=== PATIENT | female | born 1950 | race Caucasian/White ===

== ENCOUNTER 2025-01-05 09:24 | Emergency (ER) | payer MEDICARE, SELFPAY ==
[2025-01-05] VITALS (8 sets, daily range): BP systolic 152–173; BP diastolic 78–90; PULSE 72–88; RESP 15–24; TEMP 36.5–36.6; O2SAT 95–100
--- NOTE | ~2025-01-05 | XR_ITS ---
HISTORY: injury COMPARISON: None TECHNIQUE: 3 views of the right elbow were performed FINDINGS: Acute fracture of the proximal radius is identified, extending into the articular surface. Partial elbow dislocation is present. Large joint effusion is noted. IMPRESSION: Proximal radius fracture, extending into the articular surface with partial opacificatio n dislocation. Reviewed, dictated and finalized at location A. IMPRESSION: Proximal radius fracture, extending into the articular surface wit h partial opacification dislocation.
--- NOTE | ~2025-01-05 | XR_ITS ---
HISTORY: GLF COMPARISON: None TECHNIQUE: 3 views of the left ankle were performed FINDINGS: Fixation hardware within the medial and lateral malleolus. No acute displaced fracture or dislocation. Medial soft tissue swelling. The ankle mortise is preserved. Bone mineralization is age-appropriate. IMPRESSION: Medial soft tissue swelling, without acute displaced fracture, as detailed above. Reviewed, dictated and finalized at location A.
--- NOTE | ~2025-01-05 | XR_ITS ---
HISTORY: GLF COMPARISON: None TECHNIQUE: 3 views of the left foot were performed FINDINGS: No acute displaced fracture is appreciated. Moderate degenerative disease is noted. The base of the fifth metatarsal is intact. Small calcaneal spur is noted. No significant soft tissue swelling is present. IMPRESSION: Degenerative disease without acute displaced fracture, as detailed above. Reviewed, dictated and finalized at location A.
--- NOTE | ~2025-01-05 | XR_ITS ---
HISTORY: post reduction COMPARISON: Original imaging performed approximately 1 hour earlier TECHNIQUE: 2 views of the right elbow were performed FINDINGS: Alignment is restored within the right elbow post reduction. Large joint effusion persists. Acute fracture of the proximal radius is suspected (although not as clearly visualized on the current study), with possible extension into the articular surface. Bone mineralization is age-appropriate. IMPRESSION: Near anatomic alignment in the right elbow, as detailed above. Proximal radius fracture is suspected although not as clearly visualized on the current study with po ssible extension into the articular surface. Reviewed, dictated and finalized at location A. IMPRESSION: Near anatomic alignment in the right elbow, as detailed above. Proximal radius fracture is suspected although not as clearly visualized on the current study with possible extension into the articular surface.
[2025-01-05] MEDS: MORPHINE SULFATE (*CRX) 4 MG/ML INJ 2 MG IV PUSH (10:46)
--- NOTE | 2025-01-05 10:49 | ED_ITS ---
HPI - General Adult General Chief complaint: Extremity Injury, Upper Stated complaint: R ELBOW INJURY S/P FALL Time Seen by Provider: 01/05/25 10:20 History of Present Illness HPI narrative: Patient is a 64-year-old who presents emergency department chief complaint of right elbow pain. The patient reports she was wearing a pair of flip-flops and slipped reports she landed on right elbow reports that she is a deformity your right elbow patient believes it is dislocated and possibly fracture. The patient reports no laceration Related Data Allergies Allergy/AdvReac Type Severity Reaction Status Date / Time No Known Allergies Allergy Verified 01/05/25 09:31 Review of Systems Review of Systems: A 10 system review of systems was completed on the patient and is negative except for what is stated in the HPI. Nursing and ancillary documentation was reviewed. Exam Narrative: GENERAL: Well-appearing, well-nourished, and in no acute distress. HEAD: Normocephalic, atraumatic. EYES: PERRLA and EOMI. ENT: Nares clear, no rhinorrhea or epistaxis. Mucous membranes moist. NECK: Supple. CHEST: Clear to auscultation. No respiratory distress. HEART: Regular rate and rhythm. No murmur heard. Normal peripheral pulses. ABDOMEN: Soft, nontender, nondistended, normal active bowel sounds. EXTREMITIES: Normal range of motion in all extremities except for right upper extremity there is a deformity of the right elbow. No edema. SKIN: Warm, dry, no rash. NEURO: No focal deficits. Alert and oriented x3. PSYCH: Normal mood and affect. Course Vital Signs Vital signs: Vital Signs Temperature 36.5 C 01/05/25 09:29 Pulse Rate 72 01/05/25 09:29 Respiratory Rate 16 01/05/25 09:29 Blood Pressure 168/78 H 01/05/25 09:29 Pulse Oximetry 98 01/05/25 09:29 Oxygen Delivery Room Air 01/05/25 09:29 Temperature 36.6 C 01/05/25 11:55 Pulse Rate 88 01/05/25 12:34 Respiratory Rate 15 01/05/25 12:34 Blood Pressure 152/83 H 01/05/25 12:34 Pulse Oximetry 95 01/05/25 12:34 Oxygen Delivery Room Air 01/05/25 11:55 Oxygen Flow Rate 2 01/05/25 11:35 Procedures Orthopedic Joint Reduction Joint #1: Orthopedic Joint Reduction Date: 01/05/25 Orthopedic Joint Reduction Time: 11:44 Time Out Performed: Yes Side: right Joint Reduction Location: elbow Analgesia: procedural sedation Pre-Procedure Neuro Vascular Exam: normal Local Anesthesia: none Technique used: direct manipulation Post-reduction neuro exam: intact Post-reduction vascular: intact Post Reduction X-Ray Obtained: Yes Post Reduction X-Ray Results: reduced Splint Applied: Yes Patient Tolerated Procedure: well Procedural Sedation Procedural Sedation #1: Procedural Sedation Date: 01/05/25 Procedural Sedation Time: 11:45 ASA Class: II Mallampati Classification: class I NPO Status: last solid food (hours ago) (8) and last liquid food (hours ago) (8) Explanation to Patient/Family: Risk/Benefits/Alternatives and Pt/Family agreed with plan Pt. Educated on Procedural Sedation: Yes Re-evaluated immediately prior: Yes Preparation: youth nutritional monitor applied, pulse oximeter, capnometry used, supplemental O2 applied, suction/airway equipment at bedside and IV secured IV Propofol dose (mg): 50 Patient Tolerated Procedure: well Complications: none Total Sedation Time (min): 5 Medical Decision Making Vital Signs Vital Signs: Vital Signs Temperature 36.5 C 01/05/25 09:29 Pulse Rate 72 01/05/25 09:29 Respiratory Rate 16 01/05/25 09:29 Blood Pressure 168/78 H 01/05/25 09:29 Pulse Oximetry 98 01/05/25 09:29 Oxygen Delivery Room Air 01/05/25 09:29 Temperature 36.6 C 01/05/25 11:55 Pulse Rate 88 01/05/25 12:34 Respiratory Rate 15 01/05/25 12:34 Blood Pressure 152/83 H 01/05/25 12:34 Pulse Oximetry 95 01/05/25 12:34 Oxygen Delivery Room Air 01/05/25 11:55 Oxygen Flow Rate 2 01/05/25 11:35 Discharge Plan Discharge Clinical Impression: Dislocation of right elbow, Closed fracture of radial head Patient Disposition: Home Condition: Stable Instructions: Antibiotic Form, Elbow Dislocation (ED), Elbow Fracture (ED), How to Use a Sling (ED), Moderate Sedation (ED), Splint Care (ED) Patient Language: Filipino Prescriptions: New hydrocodone-acetaminophen 5-325 mg tablet 1 tablet PO Q6H PRN (Reason: pain) 3 Days Qty: 12 0RF Follow-up/Referrals: Obed Moore MD [Physician] - lisette,Nahum Song Jr., MD [Primary Care Provider] - Time of Disposition: 12:50
--- OUTSIDE RECORDS SUMMARY | 2025-01-05 10:53 | XMS_ITS | Encounter Summary ---
Author Organization [facility] Facility Care Team Providers Care Sand Slinger Name Role Phone Yg Kahn MD Primary Care Provider [phone] Lashaun Gerardo MD Primary Care Provider [phone] Ortega Souza DPM Unavailable [phone] Milton Hayes MD, Nahum Song Primary Care Provide r Encounter Details Date Type Department Care Team (Latest Contact Info) Description 08/31/2017 Orders Only [facility] CLINCON[facility] ProviderNunu MD [address] [place] [id number] Social History Tobacco Use Types Packs/Day Years Used Date Smoking Tobacco: Never Assessed Alcohol Use Standard Drinks/Week Comments Yes 0 (1 standard drink = 0.6 oz pur e alcohol) Comments Unknown Sex and Gender Information Value Date Recorded Sex Assigned at Not on file Legal Sex Female 11:34 PM FILM 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 us Historical Provider Final Res ult documented in this encounter Visit Diagnoses Not on filedocumented in this encounter Care Teams Sand Slinger Relationship Specialty Start Date End Date Yg Kahn MD PCP - General Family Medicine 12/07/18 07/25/19 Lashaun Gerardo MD [address] [place] [address] [phone] PCP - General Internal Medicine 07/26/19 07/19/22 Nahum Rose Jr., MD [address] [place] [address] [phone] PCP - General Internal Medicine 07/20/22 Ortega Souza, DPGordon [address] [place] [address] [phone] Consulting Physician Podiatry 12/18/20 documented as of this encounter
--- OUTSIDE RECORDS SUMMARY | 2025-01-05 10:53 | XMS_ITS | Encounter Summary ---
Author Organization [facility] Healthcare Address [address] [place] [address] Care Team Providers Care Hat Braider Name Role Phone Ortega Souza DPM Unavailable Milton Hayes MD, Nahum Song Primary Care Provide r Encounter Details Date Type Department Care Team (Late st Contact Info) Description 02/24/2024 E-Visit [facility] Primary Care [address] [phone] Nahum Rose Jr., MD [address] [place] [phone] Cervical strain with lifting on 02/09/24 Social History Tobacco Use Types Packs/Day Years Used Date Smoking Tobacco: Never Cigarettes Smokeless Tobacco: Never Alcohol Use Standard Drinks/Week Comments Yes 0 (1 standard drink = 0.6 oz pur e alcohol) occasionally AUDIT-C Answer Date Recorded Q1: How often do you have a drink containing alc ohol? Monthly or less 01/31/2024 Q2: How many drinks containi ng alcohol do you have on a typical day when you are drinking? 1 or 2 01/31/2024 Q3: How often do you have si x or more drinks on one occasion? Never 01/31/2024 PHQ-2 Answer Date Recorded PHQ-2 Total Score (If total score is 3 or more points, staff should administer the PHQ-9) 0 01/31/2024 Personal Safety Answer Date Recorded Have you ever been in or are you currently in a harmful physical or emotional relationship or is someone making you feel afraid or unsafe? 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
--- OUTSIDE RECORDS SUMMARY | 2025-01-05 10:53 | XMS_ITS | Encounter Summary ---
Author Organization [facility] Facility Care Team Providers Care Helpdesk Specialist Name Role Phone Yg Kahn MD Primary Care Provider Lashaun Gerardo MD Primary Care Provider [phone] Ortega Souza DPM Unavailable [phone] Milton Hayes MD, Nahum Song Primary Care Provide r Encounter Details Date Type Department Care Team (Latest Contact Info) Description 08/30/2017 Orders Only [facility] CLINCON[facility] ProviderNunu MD [address] [place] [id number] Social History Tobacco Use Types Packs/Day Years Used Date Smoking Tobacco: Never Assessed Alcohol Use Standard Drinks/Week Comments Yes 0 (1 standard drink = 0.6 oz pur e alcohol) Comments Unknown Sex and Gender Information Value Date Recorded Sex Assigned at Not on file Legal Sex Female 11:34 PM BOTTOM SPRAYER Gender Identity Female 01/05/2020 8:53 AM CDT Sexual Orientation Straight 01/05/2020 8: 53 AM CDT documented as of this encounter Plan of Treatment Not on file documented as of this encounter Procedures Procedure Name Priority Date/Time Associated Diagnosis Comments COLONOSCOPY - SCAN 08/30/2017 12 :00 AM BOTTOM SPRAYER documented in this encounter Results * COLONOSCOPY - SCAN (08/30/2017 12:00 AM BOTTOM SPRAYER) Narrative 08/30/2017 12:00 AM BOTTOM SPRAYER Ordered by an unspecified provider. us Historical Provider Final Res ult documented in this encounter Visit Diagnoses Not on filedocumented in this encounter Care Teams Helpdesk Specialist Relationship Specialty Start Date End Date Yg Kahn MD PCP - General Family Medicine 12/07/18 07/25/19 Lashaun Gerardo MD [address] [place] [address] [phone] PCP - General Internal Medicine 07/26/19 07/19/22 Nahum Rose Jr., MD [address] [place] [address] [phone] PCP - General Internal Medicine 07/20/22 Ortega Souza, DPGordon [address] [place] [address] [phone] Consulting Physician Podiatry 12/18/20 documented as of this encounter
--- OUTSIDE RECORDS SUMMARY | 2025-01-05 10:53 | XMS_ITS | Referral Summary ---
Author Organization [facility] Address [address] [place] [address] Care Team Providers Care Transferrer Name Role Phone Ortega Souza DPM Unavailable [phone] Milton Hayes MD, Nahum Song Primary Care Provide r Encounters Date Type Department Care Team Description 11/16/2024 9:40 AM CDT Office Visit [facility] Advanced Medicine ([facility]) - 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; Right chronic serous otitis media 11/16/2024 9:20 AM CDT Procedure visit [facility] Otolaryngology [address] [place] [address] [place] [address] Mixed conductive and sensorineural hearing loss of right ear with restricted hearing of left ear (Primary Dx); Sensorineural hearing loss (SNHL) of left ear with restricted hearing of right ear from Last 3 Months Allergies No known active allergies Medications aspirin 81 mg tabletIndicatio ns:prevention of thrombosis,hear t health Take 1 tablet (81 mg total) by mouth every morning 01/12/2008 Active multivit with minerals/lutein (MULTIVITAMIN 50 PLUS ORAL)Indication s:supplement Take 1 tablet by mouth every morning Active calcium carbonate-vitam in D3 (CALTRATE 600 + D) 1500 mg (600 mg elemental) -400 units per tabletIndicatio ns:Hypocalcemia Prevention,supp lement Take 1 tablet by mouth every morning Active lisinopril-hydr oCHLOROthiazide (ZESTORETIC) 10-12.5 mg per tablet TAKE 1 TABLET BY MOUTH EVERY DAY 90 tablet 3 12/02/2023 Active atorvastatin (LIPITOR) 10 mg tablet TAKE 1 TABLET BY MOUTH EVERY DAY 90 tablet 1 08/25/2024 Active Active Problems Problem Noted Date Diagnosed Date Chronic mastoiditis of right side 02/04/2023 Encounter for Medicare annual wellness exam 01/03 Assessment & Plan (01/31/2024 7:13 AM CDT): Reviewed previous labs and diagnostic test results. Chronic medical problems evaluated and management plans discussed with the patient. Prescription medications, supplements, vitamins and immunizations reviewed. Wear seatbelts. Use sunscreen. Discussed healthy diet and disease prevention and controlling portions including alcohol Discussed importance of scheduling recommended screening tests. Discussed importance of regular physical examinations for health maintenance. Discussed importance of a living will, advanced directives and establishing or updating healthcare power of admitted attorneys document and providing our office with a copy. Assessment & Plan (01/29/2023 7:36 AM CDT): Reviewed previous labs and diagnostic test results. Chronic medical problems evaluated and management plans discussed with the patient. Prescription medications, supplements, vitamins and immunizations reviewed. Wear seatbelts. Use sunscreen. Discussed healthy diet and disease prevention and controlling portions including alcohol Discussed importance of scheduling recommended screening tests. Discussed importance of regular physical examinations for health maintenance. Discussed importance of a living will, advanced directives and establishing or updating healthcare power of admitted attorneys document and providing our office with a copy. Prediabetes 03/31/2022 Assessment & Plan (01/31/2024 7:13 AM CDT): Monitor HGba1 Assessment & Plan (07/20/2022 8:22 AM STRIPPER SHOVEL OPERATOR): Hgba1c is down She can control this well with her weight/diet changes We will recheck in 6 months at her AW Assessment & Plan (03/31/2022 11:23 AM CDT): ha1c 5.9 03/26/2022- advise she work on diet and exercise and about 5-10 lbs of weight loss. Recheck in 3mo. Cholesteatoma of mastoid, right 02/13/2022 Assessment & Plan (03/31/2022 11:21 AM CDT): Surgery planned with dr. Wolfe 04/20 She is acceptable medical risk for this low risk procedure pending bp's from home. 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 Souza, screw removed, ganglion gone but now back! NOt painful or causing issues currently with shoes- would advise she leave alone unless starts bothering her Assessment & Plan (09/26/2020 9:18 AM CDT): Dissolved ganglion cyst- Assessment & Plan (06/23/2020 8:30 PM STRIPPER SHOVEL OPERATOR): Refer to podiatry per pt request for cosmetic purposes Osteopenia of multiple sites 01/04/2019 Assessment & Plan (10/01/2021 1:36 PM CDT): Due for dexa Assessment & Plan (07/26/2019 9:55 AM STRIPPER SHOVEL OPERATOR): Would repeat dexa Cont ca/vit d for now Glaucoma suspect of both eyes 12/30/2017 Age-related nuclear cataract of right eye 2017 Pseudophakia of left eye 12/30/2017 Essential hypertension 12/29/2017 Assessment & Plan (01/31/2024 7:16 AM CDT): Chronic stable Well controlled Continue current prescribed medications lisinopril-HCTZ at current dose Assessment & Plan (01/29/2023 7:36 AM CDT): Chronic stable Well controlled Continue current prescribed medications at current dose Assessment & Plan (07/20/2022 8:21 AM STRIPPER SHOVEL OPERATOR): Chronic stable Well controlled Continue current medications at current dose Assessment & Plan (03/31/2022 11:22 AM CDT): Uncontrolled, advise she send me numbers, could just be some white coat righ tnow Assessment & Plan (10/01/2021 9:04 AM CDT): Cont zestoretic Assessment & Plan (04/02/2021 12:38 PM CDT): Controlled, cont zestoretic Assessment & Plan (12/11/2020 1:10 PM CDT): Contorlled, looking great Assessment & Plan (09/26/2020 9:18 AM CDT): High on first check , continue on lisinopril/hctz and changing to the morning , if sensation returns in chest, would switch to losartan Assessment & Plan (01/09/2020 9:02 AM CDT): Patient should continue current medications Assessment & Plan (07/26/2019 9:55 AM STRIPPER SHOVEL OPERATOR): Controlled, cont lis/hctz for now- consider stoping if outpt bp's are normal at next apt Overweight with body mass in dex (BMI) of 27 to 27.9 in adult 06/02/2017 Assessment & Plan (01/29/2023 7:37 AM CDT): Weight is actually at target for her demographics Assessment & Plan (07/20/2022 8:23 AM STRIPPER SHOVEL OPERATOR): Continue to monitor weight Assessment & Plan (01/09/2020 9:01 AM CDT): Reached BMI goal Pure hypercholesterolemia 05/26/2017 Assessment & Plan (01/31/2024 7:16 AM CDT): Chronic stable Well controlled Continue current prescribed medications lipitor at current dose Assessment & Plan (01/29/2023 7:36 AM CDT): Chronic stable Well controlled Continue current prescribed medications at current dose Assessment & Plan (07/20/2022 8:21 AM STRIPPER SHOVEL OPERATOR): Continue statin Assessment & Plan (10/01/2021 1:36 PM CDT): Cont statin at 10 mg, cont healthy lifestyle and tight bp control. LDL is up a little, but would hold off on lipid adjustments, check in 6 months and possibly adjust statin at that time Assessment & Plan (04/02/2021 12:37 PM CDT): Stable on statin, no new issuees Assessment & Plan (12/11/2020 8:03 AM CDT): Started lipitor, she is worried about tga as she has a hx lft's and ck and lipids look great on this med Assessment & Plan (09/26/2020 9:19 AM CDT): Starting statin Assessment & Plan (07/26/2019 9:55 AM STRIPPER SHOVEL OPERATOR): Recheck in 6 months but huge improvement with weight loss, would not start a statin currently Macular hole of left eye 09/21/2016 Resolved Problems Problem Noted Date Diagnosed Date Resolved Date Peripheral vertigo involving right ear 12/25/2021 02/13/2022 Hyponatremia 10/01/2021 07/20/2022 Assessment & Plan (10/01/2021 1:37 PM CDT): Normal 08/12/2020- transient, resolved Decreased hearing of right ear 07/09/2021 02/13/2022 Upper respiratory tract infection 04/26/2021 02/13/2022 Assessment & Plan (04/26/2021 1:18 PM CDT): Acute-advised to take medication as directed. Instructed to increase clear liquids, rest, and vitamin C in diet. Advised to sleep with head elevated and use a cool mist vaporizer and Vicks VapoRub at bedtime for cough and congestion. Recommended follow-up with PCP if symptoms don't improve, ER for worsening or new symptoms over weekend. Osteopenia 04/02/2021 07/20/2022 Acute swimmer's ear of right side 12/24/2020 02/13/2022 Bilateral impacted cerumen 12/24/2020 0 07/20/2022 TGA (transient global amnesia) 12/11/2020 01/31/2024 Preoperative clearance 12/11/202007/20 Assessment & Plan (12/11/2020 1:08 PM CDT): Pt is acceptable medical risk for this low risk procedure Skin lesion of scalp 01/09/2020 023 Assessment & Plan (01/09/2020 9:03 AM CDT): Does not look concering Will following up with Derm in [facility] 07/26/2019 Assessment & Plan (10/01/2021 1:38 PM CDT): mcw done today Mammogram and dexa scheduled utd on vaccinations Given adr and living will info today cscope due 07/2023 Assessment & Plan (09/26/2020 9:26 AM CDT): mammo scheduled Bone scan in 2021 rec shingrix- aftercovid shot Assessment & Plan (06/23/2020 8:31 PM STRIPPER SHOVEL OPERATOR): mammo pnuemovax today labwork due rtc for follow up on chronic problems in 3 months for mcw or later Assessment & Plan (07/26/2019 9:56 AM STRIPPER SHOVEL OPERATOR): Fasting labwork in January dexa and mammo now cscope due in 2022 OA (osteoarthritis) 07/06/2018 01/09/20 Disorder of bone and cartilage 11/18/2013 01/31/2024 Overview (10/08/2016): BONE & CARTILAGE DIS NOS Immunizations Immunization Administration Dates Next Due Influenza, Quad, Adjuvantate d, Intramuscular 05/06/2022 Influenza, Quadrivalent, Hig h Dose, Preservative Free, Intrr 03/24/2021,04/16/2020 Influenza, Split 04/07/2010 Influenza, Trivalent, High D ose, Split, Preservative Free, Intramuscular 03/25/2019,04/21/2018,04/07/2016 Influenza, Trivalent, IM (MDV) 04/04/2013,2011,04/04/2011 Influenza, Unspecified 03/17/2023,03/24/2021,06/2020 Pfizer SARS-CoV-2 Monovalent Vaccination (12+ Yrs) PURPLE 05/13/2021 Pneumococcal Conjugate PCV 13 06/21/2020 Pneumococcal Polysaccharide PPV23 03/07/2014 Tdap 03/24/2021,03/07/2014,05/21/2010 ZOSTER LIVE 05/23/2015 Social History Tobacco Use Types Packs/Day Years [...] on file Legal Sex Female 11:34 PM STRIPPER SHOVEL OPERATOR Gender Identity Female 01/05/2020 8:53 AM CDT Sexual Orientation Straight 01/05/2020 8: 53 AM CDT Last Filed Vital Signs Vital Sign Reading Time Taken Comments Blood Pressure 124/70 01/31/2024 6:53 AM CDT Pulse 67 01/31/2024 6:53 AM CDT Temperature 36.4 C (97.6 F) 01/31/2024 6:53 AM CDT Respiratory Rate 18 01/31/2024 6:53 AM CDT Oxygen Saturation 99% 01/31/2024 6:53 AM CDT Inhaled Oxygen Concentration - - Weight 72.1 kg (159 lb) 01/31/2024 6:53 AM CDT Height 157.5 cm (5' 2) 01/31/2024 6:53 AM CDT Body Mass Index 29.08 01/31/2024 6:53 AM CDT Plan of Treatment Not on file Medical Devices Implanted Type Area Waste Removalist Device Identifier Shelf Expiration Date Model / Serial / Lot [employer] Porp [employer] Prosthesis Ossicular 655 - [id number] Implanted:Qty: 1 on 10/19/2022 by John Wolfe MD at [facility] Right: Ear [employer] [id number] 08/05/2027 655 / / [id number] Procedures Procedure Name Priority Date/Time Associated Diagnosis Comments AUDBASE RESULTS 11/16/2024 8:46 AM CDT DEXA AXIAL SKELETON BONE DENSITY 1 OR MORE SITES Schedule Routine, Read Routine (OP Routine) 03/27/2024 7:39 AM CDT Asymptomatic menopausal state SCREENING MAMMOGRAM BILATERAL W KIRBY Schedule Routine, Read Routine (OP Routine) 03/27/2024 7:29 AM CDT Screening mammogram, encounter for HM COLONOSCOPY Routine 12/29/2022 HEPATITIS C ANTIBODY Routine 07/25/2020 8:12 AM STRIPPER SHOVEL OPERATOR Preventative health care from Last 3 Months or Most Recently Relevant to Health Maintenance Results * AudBase Results (11/16/2024 8:46 AM CDT) us Provider Scanning AUDIOLOGY SERVICES ORDERABLES Final Result * Dexa Axial Skeleton Bone Density 1 or 2 Site (03/27/2024 7:39 AM CDT) Anatomical Region Laterality Modality Body N/A Mammography 03/27/2024 4:17 PM CDT Narrative 03/27/2024 4:18 PM CDT EXAM DESCRIPTION: DEXA AXIAL SKELETON BONE DENSITY 1 OR MORE SITES REASON FOR STUDY: 74 y/o year old F with given history of: post-menopausal osteoporosis prevention Waste Removalist/Model: ISH A (S/N [id number]) CLINICAL INFORMATION: Current height: 62 inches Maximum height: 63 inches Weight: 159 pounds Risk factors: Postmenopausal COMPARISON: 10/24/2021 FINDINGS: AP LUMBAR SPINE L1-L4: Total BMD is 0.894 g/cm2 T-score is -1.4 This is decreased in comparison to prior exam which is statistically significant. LEFT HIP: Total BMD is 0.866 g/cm2 T-score is -0.6 This is increased in comparison to prior exam which is not statistically significant. Femoral neck BMD is 0.626 g/cm2 T-score is -2.0 FRAX: 10 year risk for a major osteoporotic fracture is 12 %, 10 year risk for a hip fracture is 3.0 % IMPRESSION: Low Bone Mass. REFERENCE: Bone mineral density: T-Score: Normal (T-score above or = -1.0) Low bone mass (T-score between -1.0 and -2.5) replaces the previously used term osteopenia Osteoporosis (T-score = or below -2.5) Z-Score: Within the expected range for age (Z-score above -2.0) Below the expected range for age (Z-score is -2.0 or below) Please see below follow up recommendations. Medical evaluation for secondary causes of low bone mineral density may be appropriate. FRAX is a World Health Organization validated fracture risk assessment tool that calculates a person's 10 year probability of a major osteoporosis related fracture and hip fracture. According to the National Osteoporosis Foundation guidelines, postmenopausal women and men age 50 or older with low bone mass and a 10 year probability of a major osteoporosis related fracture = or greater than 20% or a 10 year probability of a hip fracture = or greater than 3% should be considered for pharmacological treatment for the prevention of osteoporosis. For further information, including treatment recommendations, please refer to the 2019 ISCD Official Positions (http://www.iscd.org) and the NOF's Clinician's Guide to Prevention and Treatment of Osteoporosis (http://www.nof.org/professionals/clinical-guidelines) THIS IS AN ELECTRONICALLY VERIFIED FINAL REPORT 03/27/2024 4:18 PM - Electronically signed by Nahum Troy M.D. MF: CASS Report ID: [id number] Reading Location: [address] Note Nahum Troy MD - 03/27/2024 EXAM DESCRIPTION: DEXA AXIAL SKELETON BONE DENSITY 1 OR MORE SITES REASON FOR STUDY: 74 y/o year old F with given history of: post-menopausal osteoporosis prevention Waste Removalist/Model: ISH A (S/N [id number]) CLINICAL INFORMATION: Current height: 62 inches Maximum height: 63 inches Weight: 159 pounds Risk factors: Postmenopausal COMPARISON: 10/24/2021 FINDINGS: AP LUMBAR SPINE L1-L4: Total BMD is 0.894 g/cm2 T-score is -1.4 This is decreased in comparison to prior exam which is statistically significant. LEFT HIP: Total BMD is 0.866 g/cm2 T-score is -0.6 This is increased in comparison to prior exam which is not statistically significant. Femoral neck BMD is 0.626 g/cm2 T-score is -2.0 FRAX: 10 year risk for a major osteoporotic fracture is 12 %, 10 year risk for ahip fracture is 3.0 % IMPRESSION: Low Bone Mass. REFERENCE: Bone mineral density: T-Score: Normal (T-score above or = -1.0) Low bone mass (T-score between -1.0 and -2.5) replaces thepreviously used term osteopenia Osteoporosis (T-score = or below -2.5) Z-Score: Within the expected range for age (Z-score above -2.0) Below the expected range for age (Z-score is -2.0 or below) Please see below follow up recommendations. [facility] causes of low bone mineral density may be appropriate. FRAX is a World Health Organization validated fracture risk assessmenttool that calculates a person's 10 year probability of a major osteoporosisrelated fracture and hip fracture. According to the National OsteoporosisFoundation guidelines, postmenopausal women and men age 50 or older with low bonemass and a 10 year probability of a major osteoporosis related fracture = or greater than 20% or a 10 year probability of a hip fracture = or greaterthan 3% should be considered for pharmacological treatment for the preventionof osteoporosis. For further information, including treatment recommendations, please referto the 2019 ISCD Official Positions (http://www.iscd.org) and the NOF's Clinician's Guide to Prevention and Treatment of Osteoporosis (http://www.nof.org/professionals/clinical-guidelines) THIS IS AN ELECTRONICALLY VERIFIED FINAL REPORT 03/27/2024 4:18 PM - Electronically signed by Nahum Troy M.D. MF: CASS Report ID: [id number] Reading Location: [id number] Nahum Rose Jr., MD IMG DXA PROCEDURES Fi nal Result * Screening Mammogram Bilateral W Kirby (03/27/2024 7:29 AM CDT) Anatomical Region Laterality Modality Breast Bilateral Mammography Impressions 03/27/2024 9:00 AM CDT BI-RADS ATLAS category (overall): 1 - Negative There is no mammographic evidence of malignancy. A 1 year screening mammogram is recommended. The patient has been or will be contacted. We recommend annual screening mammography for women at average risk of breast cancer beginning at age 40, based on guidelines of the [place] [employer] (ACR Practice Parameter for the Performance of Screening and Diagnostic Mammography) and [place] [employer]. For women with and elevated risk of breast cancer, please refer to the ACR Practice Parameter for specific screening recommendations. The patient will be entered into a reminder system with a target due date of 1 year for her next screening exam. Narrative 03/27/2024 9:00 AM CDT Screening Mammogram Bilateral W Kirby: 03/27/24 The study was acquired using full field digital technology and interpreted from soft copy. 2D digital mammographic views, as well as 3D digital tomosynthesis were performed in the CC and MLO projections. CLINICAL: Screening mammogram, encounter for. No relevant medical history has been documented for this patient. No known family history of breast cancer. COMPARISONS: 01/21/2023 Screening Mammogram Bilateral W Kirby 10/23/2020 Screening Mammogram Bilateral W Kirby 09/08/2019 Screening Mammogram Bilateral W Kirby 07/07/2018 Screening Mammogram Bilateral W Kirby BREAST TISSUE: There are scattered areas of fibroglandular density. FINDINGS: There is no new suspicious finding in either breast on mammogram. [facility] Screening Mammogram IMG MAMMO PROCEDURES Fi nal Result * COLONOSCOPY (12/29/2022) Scribed Colonoscopy Comment:repeat 5yrs [facility] Provider HEALTH MAINTENANCE Final Result * Hepatitis C antibody (07/25/2020 8:12 AM STRIPPER SHOVEL OPERATOR) Hep C Ab NONREACT NONREACTIVE [facility] Comment: Siemens [employer] using JEAN (chemiluminescent immunoassay) technology. NONREACTIVE: Antibodies to Hepatitis C not detected. This does not exclude early acute Hepatitis C infection, possibility of exposure to Hepatitis C, antibodies below detection limit, or to lack of antibody reactivity to the antigen used in this assay. EQUIVOCAL: Antibodies to Hepatitis C may or may not be present. Sample to be confirmed by real-time PCR method. REACTIVE: Antibodies to Hepatitis C detected.Sample to be confirmed by real-time PCR method. Blood specimen (specimen) 07/25/2020 8:12 AM STRIPPER SHOVEL OPERATOR 07/25/2020 8:18 AM STRIPPER SHOVEL OPERATOR Narrative Resulting Agency Comment CLI Lashaun Gerardo MD LAB MICROBIOLOGY - GENERAL HANNA JOE Final Result [place] [id number] [address] [phone] from Last 3 Months or Most Recently Relevant to Health Maintenance [facility] AETNA SENIOR SUPPLEMENT MEDICARE AETNA SENIOR SUPPLEMENT Care Teams Transferrer Relationship Specialty Start Date End Date Nahum Rose Jr., MD [address] [place] [phone] (Work) PCP - General Internal Medicine 07/20/22 Ortega Souza, NEENA Consulting Physician Podiatry 12/18/20
--- OUTSIDE RECORDS SUMMARY | 2025-01-05 10:53 | XMS_ITS | Encounter Summary ---
Author Organization [facility] Care Team Providers Care Railway Station Manager Name Role Phone Yg Kahn MD Primary Care Provider Lashaun Gerardo MD Primary Care Provider [phone] Ortega Souza DPM Unavailable [phone] Milton Hayes MD, Nahum Song Primary Care Provide r Encounter Details Date Type Department Care Team (Latest Contact Info) Description 08/25/2017 Orders Only [facility] CLINCONV ProviderNunu MD [address] [place] [id number] Social History Tobacco Use Types Packs/Day Years Used Date Smoking Tobacco: Never Assessed Alcohol Use Standard Drinks/Week Comments Yes 0 (1 standard drink = 0.6 oz pur e alcohol) Comments Unknown Sex and Gender Information Value Date Recorded Sex Assigned at Not on file Legal Sex Female 11:34 PM RADIOGRAPHIC TECHNOLOGIST Gender Identity Female 01/05/2020 8:53 AM CDT Sexual Orientation Straight 01/05/2020 8: 53 AM CDT documented as of this encounter Plan of Treatment Not on file documented as of this encounter Procedures Procedure Name Priority Date/Time Associated Diagnosis Comments SCAN - PATHOLOGY 08/30/2017 12:0 0 AM RADIOGRAPHIC TECHNOLOGIST documented in this encounter Results * SCAN - PATHOLOGY (08/30/2017 12:00 AM RADIOGRAPHIC TECHNOLOGIST) Narrative 08/30/2017 12:00 AM RADIOGRAPHIC TECHNOLOGIST Ordered by an unspecified provider. us Historical Provider Final Res ult documented in this encounter Visit Diagnoses Not on filedocumented in this encounter Care Teams Railway Station Manager Relationship Specialty Start Date End Date Yg Kahn MD PCP - General Family Medicine 12/07/18 07/25/19 Lashaun Gerardo MD [address] [place] [address] [id number] PCP - General Internal Medicine 07/26/19 07/19/22 Nahum Rose Jr., MD [address] [place] [address] [id number] PCP - General Internal Medicine 07/20/22 Ortega Souza, DPM [address] [place] [id number] Consulting Physician Podiatry 12/18/20 documented as of this encounter
--- OUTSIDE RECORDS SUMMARY | 2025-01-05 10:53 | XMS_ITS | Clinical Summary ---
Author Organization [facility] Address [address] [place] [address] Care Team Providers Care Ingredient Scaler Name Role Phone Ortega Souza DPM Unavailable [phone] Milton Hayes MD, Nahum Song Primary Care Provide r Allergies No known active allergies Medications aspirin [...] and establishing or updating healthcare power of collections attorney document and providing our office with a [...] and establishing or updating healthcare power of collections attorney document and providing our office with a copy. Prediabetes 03/31/2022 Assessment & Plan (01/31/2024 7:13 AM CDT): Monitor HGba1 Assessment & Plan (07/20/2022 8:22 AM CLINICAL SERVICES PROFESSIONAL): Hgba1c is down She can control this well with her weight/diet changes We will recheck in 6 months at her AWV Assessment & Plan (03/31/2022 11:23 AM CDT): [...] cyst- Assessment & Plan (06/23/2020 8:30 PM CLINICAL SERVICES PROFESSIONAL): Refer to podiatry per pt request for cosmetic purposes Osteopenia of multiple sites 01/04/2019 Assessment & Plan (10/01/2021 1:36 PM CDT): Due for dexa Assessment & Plan (07/26/2019 9:55 AM CLINICAL SERVICES PROFESSIONAL): Would repeat dexa Cont ca/vit d for [...] dose Assessment & Plan (07/20/2022 8:21 AM CLINICAL SERVICES PROFESSIONAL): Chronic stable Well controlled Continue current medications [...] medications Assessment & Plan (07/26/2019 9:55 AM CLINICAL SERVICES PROFESSIONAL): Controlled, cont lis/hctz for now- consider stoping if outpt bp's are normal at next apt Overweight with body mass in dex (BMI) of 27 to 27.9 in adult 06/02/2017 Assessment & Plan (01/29/2023 7:37 AM CDT): Weight is actually at target for her demographics Assessment & Plan (07/20/2022 8:23 AM CLINICAL SERVICES PROFESSIONAL): Continue to monitor weight Assessment & Plan (01/09/2020 9:01 AM CDT): Reached BMI goal Pure hypercholesterolemia 05/26/2017 Assessment & Plan (01/31/2024 7:16 AM CDT): Chronic stable Well controlled Continue current prescribed medications lipitor at current dose Assessment & Plan (01/29/2023 7:36 AM CDT): Chronic stable Well controlled Continue current prescribed medications at current dose Assessment & Plan (07/20/2022 8:21 AM CLINICAL SERVICES PROFESSIONAL): Continue statin Assessment & Plan (10/01/2021 1:36 [...] statin Assessment & Plan (07/26/2019 9:55 AM CLINICAL SERVICES PROFESSIONAL): Recheck in 6 months but huge improvement [...] concering Will following up with Derm in [facility] care 07/26/2019 Assessment & Plan (10/01/2021 1:38 PM CDT): mcw done today Mammogram and dexa scheduled utd on vaccinations Given adr and living will info today cscope due 07/2023 Assessment & Plan (09/26/2020 9:26 AM CDT): mammo scheduled Bone scan in 2021 rec shingrix- aftercovid shot Assessment & Plan (06/23/2020 8:31 PM CLINICAL SERVICES PROFESSIONAL): mammo pnuemovax today labwork due rtc for follow up on chronic problems in 3 months for mcw or later Assessment & Plan (07/26/2019 9:56 AM CLINICAL SERVICES PROFESSIONAL): Fasting labwork in January dexa and mammo now cscope due in 2022 OA (osteoarthritis) 07/06/2018 01/09/20 Disorder of bone and cartilage 11/18/2013 01/31/2024 Overview (10/08/2016): BONE & CARTILAGE DIS NOS Encounters Date Type Department Care Team Description 11/16/2024 9:40 AM CDT Office Visit [facility] Advanced Medicine ([facility]) - [facility] ENT [address] [facility] [address] [place] [address] [place] [address] John Wolfe MD Cholesteatoma of right ear (Primary Dx); Conductive hearing loss of right ear with restricted hearing of left ear; Right chronic serous otitis media 11/16/2024 9:20 AM CDT Procedure visit [facility] Otolaryngology [address] [facility] [address] [place] [address] [place] [address] Mixed conductive and sensorineural hearing loss of right ear with restricted hearing of left ear (Primary Dx); Sensorineural hearing loss (SNHL) of left ear with restricted hearing of right ear from Last 3 Months Immunizations Immunization Administration Dates Next Due Influenza, [...] PPV23 03/07/2014 Tdap 03/24/2021,03/07/2014,05/21/2010 ZOSTER LIVE 05/23/2015 Surgical History Surgery Date Site/Laterality Comments CATARACT EXTRACTION 09/06/2017 FRACTURE SURGERY open reduction left ankle 08/02/1996 ORIF ANKLE FRACTURE 07/05/1996 - 07/04/1997 Left CHOLESTEATOMA EXCISION 07/05/2009 - 07/04/2010 Right OOPHERECTOMY 07/05/1991 - 07/04/1992 Left Pt reports due to a benign tumor on ovary RETINA SURGERY 07/05/2016 - 07/04/2017 laser repair ADENOIDECTOMY 195 COLONOSCOPY 2019 ABDOMINAL SURGERY Left oophorectomy 02/1992 Medical History Medical History Date Comments Hyperlipidemia Osteoarthritis Essential hypertension Cataract Migraine hx of after TGA in 2004 [place] (hard of hearing) slight to right ear due to cholesteatoma TGA (transient global amnesia) 2004 p t reports only happened x 1, used to see neurologist, but doesn't anymore Ankle fracture 1996 Left ankle fx Ovarian tumor (benign) left Cholesteatoma 2010 right ear Dizziness 10/2021 Osteoporosis 1996 Family History Medical History Relation Name Comments Alcohol abuse Brother 1 Neal Jeffersitz Asthma Brother 1 Neal Blair Alcohol abuse Brother 2 Neal Blair Asthma Brother 2 Neal Jeffersitz Hearing loss Father Curtis Pinto Hyperlipidemia Father Curtis Pinto Other Father Curtis Pinto cataracts; COPD Maternal Grandfather Nicole Lizama COPD Maternal Grandmother Nicole Waller Anesthesia problems Mother Nicolesadie Pinto Delayed emergence Arthritis Mother Nicolesadie Pinto Depression Mother Nicolesadie Pinto Memory loss Mother Nicolesadie Pinto Osteoarthritis Mother Nicolesadie Pinto Osteoarthriti s; Other Mother Nicolesadie Pinto vertebral fract ures; Stroke Mother Nicolesadie Pinto Stroke; Vision loss Mother Nicolesadie Pinto Cancer Paternal Grandfather Evans Jeffersitz Cancer Paternal Grandmother Sejal Blair Arthritis Sister 1 Kat Colocino Hyperlipidemia Sister 1 Kat Colocino Hypertension Sister 1 Kat Colocino Osteoarthritis Sister 1 Kat Colocino Snoring Sister 1 Kat Colocino Arthritis Sister 2 Jane Curry COPD Sister 2 Jane Curry Asthma Son Aba Shepherd Relation Name Status Comments Brother 1 Neal Pinto Brother 2 Neal Pinto Alive Father Curtis Pinto Maternal Grandfather Nicole Lizama Maternal Grandmother Nicole Meter Mother Nicole Pinto Paternal Grandfather Evans Pinto Alive Paternal Grandmother Sejal Blair Sister 1 Kat Colocino Sister 2 Jane Curry Son Aba Perezsandi Social History Tobacco Use Types Packs/Day Years [...] on file Legal Sex Female 11:34 PM CLINICAL SERVICES PROFESSIONAL Gender Identity Female 01/05/2020 8:53 AM CDT Sexual Orientation Straight 01/05/2020 8: 53 AM CDT Obstetrics History Para Term AB IAB SAB Ectopic Multiple Livin g Live Births 2 2 2 Date Outcome GA Total Labor Labor/2nd/3rd Weight Sex Type Anes PTL Abigail A1 A5 Name Clin Term Term Last Filed Vital Signs Vital Sign Reading [...] 01/31/2024 6:53 AM CDT Plan of Treatment Health Maintenance Due Date Last Done Comments Hepatitis B Screening 1968 Covid-19 Vaccine ( season) 2024 05/06/2022, 01/19/2022, 05/13/2021, Additional history exists Depression Screening 01/30/2025 01/31/2024, 01/29/2023, 01/29/2023, Additional history exists Fall Risk Assessment 01/30/2025 01/31/2024, 01/29/2023, 10/19/2022, Additional history exists Well Visit 65+ 01/30/2025 01/31/2024, 01/03, 10/01/2021, Additional history exists Zoster Vaccine (2 of 3) 01/30/2025 05/23/2015 Post poned from 07/18/2015 (Insurance / Financial) Influenza Vaccine (#1) 2025 , 03/17/2023, 05/06/2022, Additional history exists Osteoporosis Screening-Bone Density Scan 03/27/2026 03/27/2024, 10/24/2021, 09/08/2019, Additional history exists Colon Cancer Screening-Colonoscopy 12/30/2027 12/29/2022, 07/11/2018 DTaP/Tdap/Td Vaccine (4 - Td or Tdap) 03/24/2031 03/24/2021, 03/07/2014, 05/21/2010 Pneumococcal vaccine 65+ Completed 06/21/2020, 09/2013 Hepatitis C Screening Completed 07/25/2020 Colon Cancer Screening-CT Colonography Discontinued 12/29/2022, 07/11/2018 Colon Cancer Screening-DNA Stool Discontinued 12/29/2022, 07/11/2018 Colon Cancer Screening-FIT Discontinued 12/29/2022, Colon Cancer Screening-Sigmoidoscopy Discontinued 12/29/2022, 07/11/2018 Breast Cancer Screening-Mammogram Discontinued 03/27/2024, 01/21/2023, 10/24/2021, Additional history exists Medical Devices Implanted Type Area Derivatives Trader Device Identifier Shelf Expiration Date Model / Serial / Lot [employer] Porp Freeburn Prosthesis Ossicular 655 - [id number] Implanted:Qty: 1 on 10/19/2022 by John Wolfe MD at [facility] Right: Ear [employer] [id number] 08/05/2027 655 / / [id number] Procedures Procedure Name Priority Date/Time Associated Diagnosis [...] HEPATITIS C ANTIBODY Routine 07/25/2020 8:12 AM CLINICAL SERVICES PROFESSIONAL Preventative health care from Last 3 Months [...] with given history of: post-menopausal osteoporosis prevention Derivatives Trader/Model: Plurchase A (S/N [id number]) CLINICAL INFORMATION: Current height: 62 inches Maximum [...] Nahum Troy M.D. MF: CASS Report ID: [id number] [place] Location: [address] Note Nahum Troy MD - 03/27/2024 EXAM DESCRIPTION: DEXA AXIAL SKELETON BONE DENSITY 1 OR MORE SITES REASON FOR STUDY: 74 y/o year old F with given history of: post-menopausal osteoporosis prevention Derivatives Trader/Model: Plurchase A (S/N [id number]) CLINICAL INFORMATION: Current height: 62 inches Maximum [...] see below follow up recommendations. Medical evaluation forsecondary causes of low bone mineral density may [...] Nahum Troy M.D. MF: CASS Report ID: [id number] [place] Location: [place] [address] us Nahum Rose Jr., MD IM DXA PROCEDURES Fi nal Result * Screening [...] age 40, based on guidelines of the [employer] (ACR Practice Parameter for the Performance of Screening and Diagnostic Mammography) and [employer]. For women [...] suspicious finding in either breast on mammogram. [facility] Screening Mammogram IMG MAMMO PROCEDURES Fi nal Result * COLONOSCOPY (12/29/2022) Scribed Colonoscopy Comment:repeat 5yrs [facility] Provider HEALTH MAINTENANCE Final Result * Hepatitis C antibody (07/25/2020 8:12 AM CLINICAL SERVICES PROFESSIONAL) Hep C Ab NONREACT NONREACTIVE [facility] Comment: Siemens CentaurXP using JEAN (chemiluminescent immunoassay) technology. NONREACTIVE: Antibodies [...] method. Blood specimen (specimen) 07/25/2020 8:12 AM CLINICAL SERVICES PROFESSIONAL 07/25/2020 8:18 AM CLINICAL SERVICES PROFESSIONAL Narrative Resulting Agency Comment CLI Lashaun Gerardo MD LAB MICROBIOLOGY - GENERAL [place] [address], [facility] [phone] from Last 3 Months or Most Recently Relevant to Health Maintenance Insurance MEDICARE [facility] AET MEDICARE AETNA SENIOR SUPPLEMENT MEDICARE AETNA SENIOR SUPPLEMENT Care Teams Ingredient Scaler Relationship Specialty Start Date End Date Nahum Rose Jr., MD [address] [place] [id number] PCP - General Internal Medicine 07/20/22 Ortega Souza, NEENA Consulting Physician Podiatry 12/18/20
[2025-01-05] MEDS: SODIUM CHLORIDE 0.9% IV 1,000 ML 999 ML (11:20)
== END 2025-01-05 13:51 | disposition home or self-care (01) ==
PROVIDERS: Emergency Provider Emergency Medicine; PCP Hospitalist
DX: S52.121A Displaced fracture of head of right radius, initial encounter for closed fracture (principal); W01.0XXA Fall on same level from slipping, tripping and stumbling without subsequent striking against object, initial encounter
CPT/HCPCS: 24600; 73070; 73080; 73610; 73630; 96374; 96375; 99285; A4565; J2270; J7030